=== PATIENT | male | born 1975 | race Caucasian/White ===

== ENCOUNTER → 2016-09-26 | Outpatient (CLI) | payer OTHER ==
[~2016-09-26] MED LIST: ALBUTEROL MDI IH; ALBUTEROL17 GM INH; ALPRAZOLAM PO; AMLODIPINE BESYL5 MG PO; AZITHROMYCIN500 MG PO; BACTRIM DS TABL1 TA1 PO; BACTRIM DS TABL1 TAB PO; BACTROBAN22 GM TP; BENTYL10 MG DOB; COMBIVENT14.7 GM INH; DIOVAN HCT 160/1 TAB PO; HYDROCODON-ACE1 EAC5 PO; IBUPROFEN800 MG PO; LISINOPRIL PO; LISINOPRIL-HCTZ1 T17 PO; LISINOPRIL20 MG PO; LORAZEPAM1 MG PO; LORTAB 10-5001 EACH PO; LORTAB 10/500 T1 TAB PO; LORTAB 5/500 TA1 TA1 PO; LORTAB 7.5-5001 TAB PO; MEDROL DOSEPAK4 MG PO; MOTRIN PO; NICOTINE1 PATCH .2 TD; NORVASC PO; PHENERGAN PO; PHENERGAN50 MG/SUPP RC; PREDNISONE PO; PREDNISONE10 MG PO; PRINIVIL20 M1 PO; PRINIVIL40 MG PO; QVAR7.3 G1 INH; TOPROL XL PO; TYLENOL #3 PO; TYLENOL325 M1 PO; VIBRAMYCIN100 M1 PO; VICODIN 5/1 TAB 5/50 PO; XANAX1 MG PO; Z-PACK; ZESTORETIC1 TAB PO; ZITHROMAX PO; [UNRECOGNIZED DRUG - OTHER] PO
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
== END | disposition home or self-care (01) ==
LOC: SMRI 15:28
DX: M54.9 Dorsalgia, unspecified (principal); G89.29 Other chronic pain; M47.816 Spondylosis without myelopathy or radiculopathy, lumbar region; M47.817 Spondylosis without myelopathy or radiculopathy, lumbosacral region; M51.26 Other intervertebral disc displacement, lumbar region; M48.06 Spinal stenosis, lumbar region
CPT/HCPCS: 72148